=== PATIENT | male | born 1985 | race African-American/Black ===

== ENCOUNTER 2017-03-18 20:03 | Emergency (ER) | payer SELFPAY ==
[~2017-03-18] VITALS: Ht 193 cm; Wt 85.3 kg
[~2017-03-18 20:03] MED LIST: FLUT9.9S NS
[2017-03-18 20:40] VITALS: BP 94/62
[2017-03-18] MEDS ORDERED: AMOX1TAB61 PO (21:39)
--- NOTE | 2017-03-18 21:39 | PHYS DOC ---
Past Medical History Past Medical History: Other Additional Past Medical Histor: Bone marrow aspiration procedure. Past Surgical History: No Surgical History Alcohol Use: Occasionally Drug Use: None Adult General Chief Complaint Chief Complaint: COUGH HPI HPI Patient is a 31 year old male presents to the emergency department stating that he has had nasal congestion sore throat and a cough with sinus pressure for the last 2 days. He denies any fever, chills or any nausea vomiting. He does have a low-grade temp on arrival to the emergency department with a temp of 99.5. Patient states he has not been taking anything for the pressure or congestion. Review of Systems Review of Systems Constitutional: low grade fever Eyes: Denies change in visual acuity, redness, or eye pain [] HENT: nasal congestion and sore throat [] Respiratory: cough denies shortness of breath [] Cardiovascular: No additional information not addressed in HPI [] GI: Denies abdominal pain, nausea, vomiting, bloody stools or diarrhea [] : Denies dysuria or hematuria [] Musculoskeletal: Denies back pain or joint pain [] Integument: Denies rash or skin lesions [] Neurologic: Denies headache, focal weakness or sensory changes [] Allergies Allergies Allergies Coded Allergies Type Severity Reaction Last Updated Verified No Known Drug Allergies 10/07/15 No Physical Exam Physical Exam Constitutional: Well developed, well nourished, no acute distress, non-toxic appearance. [] HENT: Normocephalic, atraumatic, bilateral external ears normal, oropharynx moist, no oral exudates, nose normal. Lateral tympanic membranes appear to be normal. Throat with erythematous no exudate noted no uvula the edition noted. Patient with a left anterior cervical adenopathy noted. Patient was also noted to have swelling in bilateral naris. Tenderness over frontal and maxillary sinus areas. Eyes: PERRLA, EOMI, conjunctiva normal, no discharge. [] Neck: Normal range of motion, no tenderness, supple, no stridor. [] Cardiovascular:Heart rate regular rhythm, no murmur [] Lungs & Thorax: Bilateral breath sounds clear to auscultation [] Skin: Warm, dry, no erythema, no rash. [] Back: No tenderness Extremities: No tenderness, no cyanosis, no clubbing, ROM intact, no edema. [] Neurologic: Alert and oriented X 3, normal motor function, normal sensory function, no focal deficits noted. [] Psychologic: Affect normal, judgement normal, mood normal. [] Current Patient Data Vital Signs Vital Signs Date Time Temp Pulse Resp B/P Pulse Ox O2 Delivery O2 Flow Rate FiO2 03/18/17 20:40 99.5 92 20 99 Room Air 99.5 EKG EKG [] Radiology/Procedures Radiology/Procedures [] Course & Med Decision Making Course & Med Decision Making Pertinent Labs and Imaging studies reviewed. (See chart for details) Patient will be discharged home on Augmentin with recommendations for Sudafed instructed by ski lift mechanic, and Mucinex DM. Also recommended Tylenol or ibuprofen for fever chills generalized body aches and discomfort. Patient was given signs and symptoms to return back to emergency department. Patient agrees with discharge instructions treatment regimens and follow-up recommendations. [] Dragon Disclaimer Dragon Disclaimer This electronic medical record was generated, in whole or in part, using a voice recognition dictation system. Departure Departure Impression: Primary Impression: Acute sinusitis Disposition: HOME, SELF-CARE Condition: STABLE Referrals: NO PCP (PCP) Patient Instructions: Sinusitis, [id number] Additional Instructions: You are being treated for sinusitis infection. Medication as prescribed. Sudafed as directed by ski lift mechanic [id number]. Mucinex DM can also be purchased [id number] take as prescribed by ski lift mechanic. Drink plenty of fluids. Tylenol or ibuprofen for fever chills or generalized body aches and discomfort. Follow-up through primary care physician next 3-5 days. Return back to emergency prior signs symptoms of become worse. Scripts Amoxicillin/Potassium Clav (Augmentin 875-125 Tablet)1 Each Tablet1 Tab PO BID # 20 TAB Prov:TREVON ZAYAS APRN 03/18/17 TREVON ZAYAS APRN Mar 18, 2017 21:39
== END 2017-03-18 21:45 | disposition home or self-care (01) ==
LOC: ER 20:03
DX: J01.90 Acute sinusitis, unspecified (principal); J02.9 Acute pharyngitis, unspecified
CPT/HCPCS: 99283

== ENCOUNTER 2018-08-27 12:40 | Emergency (ER) | payer SELFPAY ==
[~2018-08-27] VITALS: Ht 193 cm; Wt 83.5 kg
[~2018-08-27 12:40] MED LIST changes: +AMOX1TAB61 PO
[2018-08-27 13:11] LABS: BILIRUBIN,URINE NEGATIVE (NEG); CLARITY,URINE CLEAR; COLOR,URINE YELLOW; NITRITE,URINE NEGATIVE (NEG); PROTEIN,URINE NEGATIVE (NEG-TRACE)
[2018-08-27] MEDS: IV NORMAL SALINE 1000ML BAG 1,000 ML IV ONE (13:11)
[2018-08-27] MEDS: ACETAMINOPHEN 500 MG TABLET PO ONE (13:19)
[2018-08-27] MEDS: ONDANSETRON PF 4 MG/2 ML VIAL. IV ONE (13:20)
[2018-08-27 13:21] LABS: BASO % 1 % (0-3); EOS # 0.2 x10^3/uL (0.0-0.7); EOS % 7 % (0-3); HEMATOCRIT 43.6 % (39.0-53.0); HEMOGLOBIN 15.3 g/dL (13.0-17.5); LYMPH # 1.3 x10^3/uL (1.0-4.8); LYMPH % 45 % (24-48); MEAN CORPUSCULAR HEMOGLOBIN 33 pg (25-35); MEAN CORPUSCULAR HGB CONC 35 g/dL (31-37); MEAN CORPUSCULAR VOLUME 94 fL (79-100); MONO # 0.4 x10^3/uL (0.0-1.1); MONO % 12 % (0-9); NEUT # 1.1 x10^3uL (1.8-7.7); NEUT % 35 % (31-73); PLATELET COUNT 241 x10^3/uL (140-400); RED BLOOD COUNT 4.62 x10^6/uL (4.30-5.70); RED CELL DISTRIBUTION WIDTH 14.3 % (11.5-14.5)
--- NOTE | 2018-08-27 13:23 | PHYS DOC ---
Past Medical History Past Medical History: No Pertinent History, Other Additional Past Medical Histor: Bone marrow aspiration procedure. Past Surgical History: No Surgical History Additional Information: black and milds Alcohol Use: Occasionally Drug Use: Marijuana Adult General Chief Complaint Chief Complaint: ABDOMINAL PAIN HPI HPI Patient is a 32 year old male presenting with abdominal pain mid abdomen associated with some nausea. There is a palpable and there he is also some soft stool history ordered have been sick with URI symptoms and viral syndrome over the past few days. He really wanted is coming to get checked out he says he doesn't feel well enough to work he would like a note off of work as well. Intermittent comes and goes prescription cramping in nature Review of Systems Review of Systems Constitutional: Denies fever or chills [] Eyes: Denies change in visual acuity, redness, or eye pain [] HENT: Denies nasal congestion or sore throat [] Respiratory: Denies cough or shortness of breath [] Cardiovascular: No additional information not addressed in HPI [] GI: Neurologic: Denies headache, focal weakness or sensory changes [] Endocrine: Denies polyuria or polydipsia [] All other systems were reviewed and found to be within normal limits, except as documented in this note. Current Medications Current Medications Current Medications Medications (Trade) Dose Ordered Sig/Char Start Time Stop Time Status Last Admin Dose Admin Acetaminophen (Tylenol) 1,000 mg 1X ONCE 08/27/18 13:00 08/27/18 13:15 DC 08/27/18 13:19 1,000 MG Ondansetron HCl (Zofran) 4 mg 1X ONCE 08/27/18 13:00 08/27/18 13:15 DC 08/27/18 13:20 4 MG Sodium Chloride 1,000 ml @ 1,000 mls/hr 1X ONCE 08/27/18 13:00 08/27/18 13:59 DC 08/27/18 13:11 1,000 MLS/HR Allergies Allergies Allergies Coded Allergies Type Severity Reaction Last Updated Verified No Known Drug Allergies 10/07/15 No Physical Exam Physical Exam Constitutional: Well developed, well nourished, no acute distress, non-toxic appearance. [] HENT: Normocephalic, atraumatic, bilateral external ears normal, oropharynx moist, no oral exudates, nose normal. [] Eyes: PERRLA, EOMI, conjunctiva normal, no discharge. [] Neck: Normal range of motion, no tenderness, supple, no stridor. [] Pulmonary: Normal respiratory effort no increased work of breathing no obvious chest wall trauma Abdomen: Bowel sounds normal, soft, no tenderness, no masses, no pulsatile masses. Specifically no right lower quadrant tenderness at all Skin: Warm, dry, no erythema, no rash. [] Back: No tenderness, no CVA tenderness. [] Extremities: No tenderness, no cyanosis, no clubbing, ROM intact, no edema. [] Neurologic: Alert and oriented X 3, normal motor function, normal sensory function, no focal deficits noted. [] Psychologic: Affect normal, judgement normal, mood normal. [] Current Patient Data Vital Signs Vital Signs Date Time Temp Pulse Resp B/P (MAP) Pulse Ox O2 Delivery O2 Flow Rate FiO2 08/27/18 12:42 98.1 72 14 132/71 (91) 97 Room Air 98.1 Lab Values Laboratory Tests Test 08/27/18 12:42 08/27/18 13:05 Urine Color Yellow Urine Clarity Clear Urine pH 6.0 Urine Specific Crowley 1.025 Urine Protein Negative mg/dL (NEG-TRACE) Urine Glucose (UA) Negative mg/dL (NEG) Urine Ketones (Stick) Negative mg/dL (NEG) Urine Blood Negative (NEG) Urine Nitrite Negative (NEG) Urine Bilirubin Negative (NEG) Urine Urobilinogen Dipstick 1.0 mg/dL (0.2 mg/dL) Urine Leukocyte Esterase Negative (NEG) Urine RBC 0 /HPF (0-2) Urine WBC 0 /HPF (0-4) Urine Squamous Epithelial Cells Few /LPF Urine Bacteria 0 /HPF (0-FEW) White Blood Count 3.0 x10^3/uL (4.0-11.0) L Red Blood Count 4.62 x10^6/uL (4.30-5.70) Hemoglobin 15.3 g/dL (13.0-17.5) Hematocrit 43.6 % (39.0-53.0) Mean Corpuscular Volume 94 fL (79-100) Mean Corpuscular Hemoglobin 33 pg (25-35) Mean Corpuscular Hemoglobin Concent 35 g/dL (31-37) Red Cell Distribution Width 14.3 % (11.5-14.5) Platelet Count 241 x10^3/uL (140-400) Neutrophils (%) (Auto) 35 % (31-73) Lymphocytes (%) (Auto) 45 % (24-48) Monocytes (%) (Auto) 12 % (0-9) H Eosinophils (%) (Auto) 7 % (0-3) H Basophils (%) (Auto) 1 % (0-3) Neutrophils # (Auto) 1.1 x10^3uL (1.8-7.7) L Lymphocytes # (Auto) 1.3 x10^3/uL (1.0-4.8) Monocytes # (Auto) 0.4 x10^3/uL (0.0-1.1) Eosinophils # (Auto) 0.2 x10^3/uL (0.0-0.7) Basophils # (Auto) 0.0 x10^3/uL (0.0-0.2) Sodium Level 142 mmol/L (136-145) Potassium Level 3.7 mmol/L (3.5-5.1) Chloride Level 104 mmol/L (98-107) Carbon Dioxide Level 25 mmol/L (21-32) Anion Gap 13 (6-14) Blood Urea Nitrogen 20 mg/dL (8-26) Creatinine 0.9 mg/dL (0.7-1.3) Estimated GFR (Cockcroft-Gault) 118.3 BUN/Creatinine Ratio 22 (6-20) H Glucose Level 82 mg/dL (70-99) Calcium Level 8.9 mg/dL (8.5-10.1) Total Bilirubin 0.7 mg/dL (0.2-1.0) Aspartate Amino Transferase (AST) 26 U/L (15-37) Alanine Aminotransferase (ALT) 26 U/L (16-63) Alkaline Phosphatase 81 U/L (46-116) Total Protein 7.7 g/dL (6.4-8.2) Albumin 4.2 g/dL (3.4-5.0) Albumin/Globulin Ratio 1.2 (1.0-1.7) Laboratory Tests 08/27/18 13:05 Laboratory Tests 08/27/18 13:05 EKG EKG [] Radiology/Procedures Radiology/Procedures [] Course & Med Decision Making Course & Med Decision Making Pertinent Labs and Imaging studies reviewed. (See chart for details) []Mid abdominal pain and then otherwise healthy 32-year-old with a benign abdominal exam nontender he has had sick contacts as well as intermittent nausea with some loose stool. Lower etiology is likely however her white blood count as a screening tool. noted mildly low favoring viral etiology. (no old wbc in our system) This point time I do not think that the patient is a clinical exam consistent with appendicitis but I did advise him to come back within 24-48 hours or sooner should he have migrating or more focal right lower quadrant sharp pain fever or persistent vomiting. Patient was given symptomatic treatment in the ER with improvement. Dragon Disclaimer Dragon Disclaimer This electronic medical record was generated, in whole or in part, using a voice recognition dictation system. Departure Departure Impression: Primary Impression: Abdominal pain Disposition: HOME, SELF-CARE Condition: STABLE Referrals: NO PCP (PCP) KATINA PERALTA MD Aug 27, 2018 13:23
[2018-08-27 13:27] LABS: CALCIUM 8.9 mg/dL (8.5-10.1); CREATININE 0.9 mg/dL (0.7-1.3); GFR 118.3; POTASSIUM 3.7 mmol/L (3.5-5.1)
[2018-08-27 13:27] LABS: BACTERIA,URINE 0 /HPF (0-FEW); RBC,URINE 0 /HPF (0-2); WBC,URINE 0 /HPF (0-4)
[2018-08-27 13:28] LABS: SQUAMOUS EPITHELIAL CELL,UR FEW /LPF
[2018-08-27 13:32] LABS: ALBUMIN 4.2 g/dL (3.4-5.0); ALBUMIN/GLOBULIN RATIO 1.2 (1.0-1.7); TOTAL BILIRUBIN 0.7 mg/dL (0.2-1.0); TOTAL PROTEIN 7.7 g/dL (6.4-8.2)
[2018-08-27 13:47] VITALS: BP 124/86
== END 2018-08-27 14:00 | disposition home or self-care (01) ==
LOC: ER 12:40
DX: R10.9 Unspecified abdominal pain (principal); R11.0 Nausea; R19.7 Diarrhea, unspecified
CPT/HCPCS: 36415; 80053; 81001; 85025; 96361; 96374; 99284; J2405; J7030

== ENCOUNTER 2018-11-17 16:41 | Emergency (ER) | payer SELFPAY ==
[~2018-11-17] VITALS: Ht 190.5 cm; Wt 83.9 kg
[2018-11-17 16:51] VITALS: BP 132/71
[2018-11-17] MEDS ORDERED: AMOX875T PO (16:55)
[2018-11-17] MEDS ORDERED: DICL50TA2 PO (16:55)
--- NOTE | 2018-11-17 16:56 | PHYS DOC ---
Past Medical History Past Medical History: No Pertinent History, Other Additional Past Medical Histor: Bone marrow aspiration procedure. Past Surgical History: No Surgical History Alcohol Use: Occasionally Drug Use: Marijuana Adult General Chief Complaint Chief Complaint: DENTAL PROBLEM HPI HPI Patient is a 32 year old male with history of smoking who presents today complaining of right upper gum dental swelling that he noted yesterday. Patient denies any fever or trismus. Review of Systems Review of Systems Constitutional: Denies fever or chills [] HENT: Reports right upper gum dental swelling. Denies nasal congestion or sore throat [] Musculoskeletal: Denies back pain or joint pain [] Integument: Denies rash or skin lesions [] Neurologic: Denies headache, focal weakness or sensory changes [] All other systems were reviewed and found to be within normal limits, except as documented in this note. Allergies Allergies Allergies Coded Allergies Type Severity Reaction Last Updated Verified No Known Drug Allergies 10/07/15 No Physical Exam Physical Exam Constitutional: Well developed, well nourished, no acute distress, non-toxic appearance. [] HENT: Normocephalic, atraumatic, bilateral external ears normal, oropharynx moist, no oral exudates, nose normal. [] Right upper gum around tooth #4 through 6 with a small abscess with no fluctuance. The gum is erythematous around this area. Skin: Warm, dry, no erythema, no rash. [] Back: No tenderness, no CVA tenderness. [] Extremities: No tenderness, no cyanosis, no clubbing, ROM intact, no edema. [] Neurologic: Alert and oriented X 3, normal motor function, normal sensory function, no focal deficits noted. [] Psychologic: Affect normal, judgement normal, mood normal. [] EKG EKG [] Radiology/Procedures Radiology/Procedures [] Course & Med Decision Making Course & Med Decision Making Pertinent Labs and Imaging studies reviewed. (See chart for details) This is a 32-year-old male patient presenting to the ED today with a dental abscess with no fluctuance. We'll be discharged on amoxicillin. Encouraged to consider smoking cessation. Diclofenac for pain. Follow-up with dentist in 1-2 weeks. Dragon Disclaimer Dragon Disclaimer This electronic medical record was generated, in whole or in part, using a voice recognition dictation system. Departure Departure Impression: Primary Impression: Dental abscess Additional Impression: Smoking addiction Disposition: HOME, SELF-CARE Condition: STABLE Referrals: NO PCP (PCP) Follow-up with the dentist in 1-2 weeks Patient Instructions: Dental Abscess, Smoking Cessation, Tips For Success Additional Instructions: You were evaluated in the emergency room for a dental infection. Complete your antibiotics, consider smoking cessation, follow-up with a dentist in the next 1- 2 weeks. Scripts Diclofenac Potassium (DICLOFENAC POTASSIUM) 50 Mg Tablet 1 TAB PO BID, #60 TAB 1 Refill Prov: CORDELIA MCCANN APRN 11/17/18 Amoxicillin (AMOXICILLIN) 875 Mg Tablet 1 TAB PO BID, #20 TAB Prov: CORDELIA MCCANN APRN 11/17/18 Problem Qualifiers CORDELIA MCCANN APRN Nov 17, 2018 16:56
== END 2018-11-17 17:05 | disposition home or self-care (01) ==
LOC: ER 16:41
DX: K04.7 Periapical abscess without sinus (principal); F17.200 Nicotine dependence, unspecified, uncomplicated
CPT/HCPCS: 99283